=== PATIENT | female | born 1975 | race Caucasian/White ===

== ENCOUNTER 2020-10-15 07:22 | Emergency (ER) | payer OTHER ==
[~2020-10-15] VITALS: Ht 175.3 cm; Wt 120.4 kg
[~2020-10-15 07:22] MED LIST: ATEN25TA42 PO; CIPR250T30 PO; CLON0.1T PO; IBUP800T19 PO; METF500T16 PO; NAPR220C4 PO; POTA10TA12 PO
--- NOTE | 2020-10-15 08:02 | PHYS DOC ---
General Adult EDM: Chief Complaint: NAUSEA/VOMITING/DIARRHEA HPI: HPI: 44-year-old female presents with nausea, vomiting and abdominal pain. Patient woke up around 3 AM feeling nauseated. She has had several episodes of vomiting. She also has diffuse abdominal pain and low back pain. She has chronic low back pain at baseline. The patient mentions some mild chest discomfort, but thinks this is from her dry heaving. No history of cardiac or lung problems. Patient does have diabetes. No fever or chills at home. Review of Systems: Review of Systems: Constitutional: Denies fever or chills Eyes: Denies change in visual acuity HENT: Denies nasal congestion or sore throat Respiratory: Denies cough or shortness of breath Cardiovascular: Mild chest pain GI: Generalized abdominal pain, nausea, vomiting. Denies bloody stools or diarrhea : Denies dysuria Musculoskeletal: Denies back pain or joint pain Integument: Denies rash Neurologic: Denies headache, focal weakness or sensory changes Endocrine: Denies polyuria or polydipsia Lymphatic: Denies swollen glands Psychiatric: Denies depression or anxiety Current Medications: Current Meds: Current Medications Medications (Trade) Dose Ordered Sig/Chirag Start Time Stop Time Status Last Admin Dose Admin Aspirin (Aspirin Chewable) 324 mg 1X ONCE 10/15/20 08:00 10/15/20 08:01 Ondansetron HCl (Zofran) 4 mg 1X ONCE 10/15/20 08:00 10/15/20 08:01 Sodium Chloride 1,000 ml @ 1,000 mls/hr 1X ONCE 10/15/20 08:00 10/15/20 08:59 Allergies: Allergies: Allergies Coded Allergies Type Severity Reaction Last Updated Verified Penicillins Allergy Unknown 07/28/13 Yes Physical Exam: PE: Constitutional: Well developed, well nourished, morbidly obese, no acute distress, non-toxic appearance. [] HENT: Normocephalic, atraumatic, bilateral external ears normal, oropharynx moist, no oral exudates, nose normal. [] Eyes: PERRLA, EOMI, conjunctiva normal, no discharge. [] Neck: Normal range of motion, no tenderness, supple, no stridor. [] Cardiovascular: Heart rate 103, regular rhythm, no murmur [] Lungs & Thorax: Bilateral breath sounds clear to auscultation [] Abdomen: Bowel sounds normal, soft, no tenderness, no masses, no pulsatile masses. [] Skin: Warm, dry, no erythema, no rash. [] Back: No tenderness, no CVA tenderness. [] Extremities: No tenderness, no cyanosis, no clubbing, ROM intact, no edema. [] Neurologic: Alert and oriented X 3, normal motor function, normal sensory function, no focal deficits noted. [] Psychologic: Affect normal, judgement normal, mood normal. [] EKG: EKG: [] Radiology/Procedures: Radiology/Procedures: [] Impressions: CT scan of the abdomen and pelvis with contrast 10/15/2020 CLINICAL HISTORY: Abdominal pain. TECHNIQUE: After the intravenous administration of 75 cc of Omnipaque 300 only, contiguous, 2.5 mm axial sections were obtained through the abdomen and pelvis. One or more of the following individualized dose reduction techniques were utilized for this study: 1. Automated exposure control. 2. Adjustment of the mA and/or kV according to patient size. 3. Use of iterative reconstruction technique. FINDINGS: Images through the lung bases demonstrate minimal dependent subsegmental atelectasis bilaterally. The liver is mildly enlarged measuring 23 cm in length. Decreased attenuation of the liver parenchyma is seen consistent with fatty infiltration. The spleen, pancreas, adrenal glands and kidneys are within normal limits. The abdominal aorta tapers normally. The gallbladder is slightly contracted. No free fluid or free air is seen within the abdomen. The appendix is well- visualized and is within normal limits. Mildly dilated air and fluid-filled jejunal loops are seen within the left abdomen. The ileum is normal in caliber as is the colon. These findings could reflect an ileus versus a mild partial small bowel obstruction. Images through the pelvis demonstrate the urinary bladder to be contracted. A 1.5 cm low-attenuation lesion is seen within the cervix which likely represents a nabothian cyst. The patient appears to be post left nephrectomy. Low- attenuation lesions are seen within the right adnexa which measure 2 cm and 3.8 cm in size. These likely represent cysts. No free fluid is seen. Minimal S-shaped curvature of the thoracolumbar spine is seen. Degenerative changes are seen involving lower thoracic and throughout the lumbar spine along with both hips. IMPRESSION: 1. Mildly dilated air and fluid-filled jejunal loops are seen within the left abdomen which could represent an ileus versus a mild partial small bowel obstruction. 2. Probable cysts are seen involving the right ovary. These measure 2 and 3.8 cm in size. Electronically signed by: Vishal Ahn MD (10/15/2020 9:24 AM) [id number] DICTATED AND SIGNED BY: VISHAL AHN MD DATE: 10/15/20 0917 CC: CARLOS ANAYA DO; ALIS GENTILE MD ~MTH0 0 Heart Score: C/O Chest Pain: Yes HEART Score for Chest Pain: HEART Score for Chest Pain Response (Comments) Value History Slighlty/Non-Suspicious 0 ECG Nonspecific Repolarizatio 1 Age < 45 0 Risk Factors 1 or 2 Risk Factors 1 Troponin < Normal Limit 0 Total 2 Risk Factors: Risk Factors: DM, Current or recent (<one month) smoker, HTN, HLP, family history of CAD, obesity. Risk Scores: Score 0 - 3: 2.5% MACE over next 6 weeks - Discharge Home Score 4 - 6: 20.3% MACE over next 6 weeks - Admit for Clinical Observation Score 7 - 10: 72.7% MACE over next 6 weeks - Early Invasive Strategies Course & Med Decision Making: Course & Med Decision Making Pertinent Labs and Imaging studies reviewed. (See chart for details) The patient's labs are unremarkable. I have given her 4 mg of morphine for pain. Her CT of the abdomen and pelvis shows several likely ovarian cyst but more significantly dilated loops of bowel. This favors ileus versus partial small bowel obstruction. I spoke with Dr. Carey, general surgery and he would like patient transferred to [facility]. I spoke with Dr. Oquendo the hospitalist and he will accept the patient for transfer and admission to [place]. The patient is in agreement with this plan. She will go by ambulance. [] Dragon Disclaimer: Dragon Disclaimer: This electronic medical record was generated, in whole or in part, using a voice recognition dictation system. Departure Departure: Impression: Primary Impression: Small bowel obstruction Disposition: 02 SHORT TERM HOSPITAL Condition: STABLE Referrals: ALIS GENTILE MD (PCP) CARLOS ANAYA DO Oct 15, 2020 08:02
--- NOTE | 2020-10-15 08:09 | EKG ---
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
--- NOTE | 2020-10-15 08:17 | RAD ---
INDICATION: Reason: CP / Spl. Instructions: / History: COMPARISON: July 2013 FINDINGS: Single view of chest obtained. No focal airspace consolidation. Cardiomediastinal contour unremarkable. No acute osseous abnormality. IMPRESSION: * No focal airspace consolidation or edema. Electronically signed by: Lopez Merritt MD (10/15/2020 8:14 AM) [id number]
[2020-10-15] MEDS: IV NORMAL SALINE 1,000ML 1,000 ML IV ONE (08:20)
[2020-10-15] MEDS: ONDANSETRON PF 4 MG/2 ML VIAL. IVP ONE (08:20)
[2020-10-15 08:21] LABS: BASO % 0 % (0-3); EOS % 0 % (0-3); HEMOGLOBIN 15.2 g/dL (12.0-15.5); LYMPH # 0.3 x10^3/uL (1.0-4.8); LYMPH % 3 % (24-48); MEAN CORPUSCULAR HEMOGLOBIN 29 pg (25-35); MEAN CORPUSCULAR HGB CONC 32 g/dL (31-37); MEAN CORPUSCULAR VOLUME 89 fL (79-100); MONO # 0.6 x10^3/uL (0.0-1.1); MONO % 7 % (0-9); NEUT # 7.5 x10^3uL (1.8-7.7); NEUT % 89 % (31-73); PLATELET COUNT 212 x10^3/uL (140-400); RED CELL DISTRIBUTION WIDTH 14.6 % (11.5-14.5); WHITE BLOOD COUNT 8.4 x10^3/uL (4.0-11.0)
[2020-10-15] MEDS: ASPIRIN CHEWABLE 81 MG TABLET. PO ONE (08:21)
[2020-10-15] MEDS ORDERED: CONTRAST GIVEN. MC PRN (08:30)
[2020-10-15 08:34] LABS: CALCIUM 8.3 mg/dL (8.5-10.1); CREATININE 0.7 mg/dL (0.6-1.0); GFR 90.9; POTASSIUM 3.8 mmol/L (3.5-5.1)
[2020-10-15 08:40] LABS: ALBUMIN 3.5 g/dL (3.4-5.0); TOTAL BILIRUBIN 0.5 mg/dL (0.2-1.0); TOTAL PROTEIN 6.9 g/dL (6.4-8.2)
[2020-10-15] MEDS: IOHEXOL 300 MG/ML 75 ML VIAL. IV ONE (08:57)
[2020-10-15] MEDS: MORPHINE SULFATE 4 MG/ML DISP.SYRIN. IV ONE (09:08)
[2020-10-15 09:09] LABS: BARBITURATES NEG (NEG); BENZODIAZEPINES NEG (NEG); CANNABINOIDS NEG (NEG); COCAINE NEG (NEG); METHADONE NEG (NEG); OPIATES NEG (NEG); PHENCYCLIDINE NEG (NEG)
[2020-10-15 09:10] LABS: AMPHETAMINE/METHAMPHETAMINE NEG (NEG)
[2020-10-15 09:11] LABS: COLOR,URINE YELLOW
[2020-10-15 09:12] LABS: BILIRUBIN,URINE NEG (NEG); CLARITY,URINE CLOUDY; GLUCOSE,URINE >=1000 mg/dL (NEG); NITRITE,URINE NEG (NEG); UROBILINOGEN,URINE 0.2 mg/dL (0.2 mg/dL)
[2020-10-15 09:16] LABS: BACTERIA,URINE 0 /HPF (0-FEW); RBC,URINE RARE /HPF (0-2); SQUAMOUS EPITHELIAL CELL,UR MOD /LPF
--- NOTE | 2020-10-15 09:26 | RAD ---
CT scan of the abdomen and pelvis with contrast 10/15/2020 CLINICAL HISTORY: Abdominal pain. TECHNIQUE: After the intravenous administration of 75 cc of Omnipaque 300 only, contiguous, 2.5 mm ax ial sections were obtained through the abdomen and pelvis. One or more of the following individualized dose reduction techniques were utilized for this study: 1. Automated exposure control. 2. Adjustment of the mA and/or kV according to patient size. 3. Use of iterative reconstruction technique. FINDINGS: Images through the lung bases demonstrate minimal dependent subsegmental atelectasis bilate rally. The liver is mildly enlarged measuring 23 cm in length. Decreased attenuation of the liver parenchyma is seen consistent with fatty infiltration. The spleen, pancreas, adrenal glands and kidneys are wit hin normal limits. The abdominal aorta tapers normally. The gallbladder is slightly contracted. No free fluid or free ai r is seen within the abdomen. The appendix is well-visualized and is within normal limits. Mildly dilated air and fluid-filled jejunal loops are seen within the left abdomen. The ileum is norm al in caliber as is the colon. These findings could reflect an ileus versus a mild partial small serg l obstruction. Images through the pelvis demonstrate the urinary bladder to be contracted. A 1.5 cm low-attenuation lesion is seen within the cervix which likely represents a nabothian cyst. The patient appears to be post left nephrectomy. Low-attenuation lesions are seen within the right adnexa which measure 2 cm an d 3.8 cm in size. These likely represent cysts. No free fluid is seen. Minimal S-shaped curvature of the thoracolumbar spine is seen. Degenerative changes are seen involvin g lower thoracic and throughout the lumbar spine along with both hips. IMPRESSION: 1. Mildly dilated air and fluid-filled jejunal loops are seen within the left abdomen which could rep resent an ileus versus a mild partial small bowel obstruction. 2. Probable cysts are seen involving the right ovary. These measure 2 and 3.8 cm in size. Electronically signed by: Vishal Ahn MD (10/15/2020 9:24 AM) [id number]
[2020-10-15 10:00] VITALS: BP 116/65
--- NOTE | 2020-10-15 10:25 | EKG ---
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
== END 2020-10-15 11:40 | disposition short-term general hospital (02) ==
LOC: ER 07:22
DX: K56.609 Unspecified intestinal obstruction, unspecified as to partial versus complete obstruction (principal); Z88.0 Allergy status to penicillin
CPT/HCPCS: 36415; 71045; 74177; 80053; 80307; 81001; 84484; 85025; 93005; 96361; 96374; 96375; 99285; J2270; J2405; J7030; Q9967